=== PATIENT | male | born 1940 | race Two or more races ===

== ENCOUNTER 2024-07-07 09:45 | Emergency (ER) | payer OTHER ==
[~2024-07-07] VITALS: Ht 172.7 cm; Wt 81.6 kg
[2024-07-07] MEDS ORDERED: PROTONIX20 MG PO (09:56)
[2024-07-07] MEDS ORDERED: ZESTRIL5 MG (09:56)
[2024-07-07] MEDS ORDERED: 0.9 % SODIUM CHLORIDE 1,000 ML IV SCH (10:15)
[2024-07-07 11:49] LABS: BASO % 0.3 % (0.1-1.2); EOS # 0.03 (0.04-0.54); EOS % 0.2 % (0.7-7.0); HEMATOCRIT 52.8 % (40.1-51.0); HEMOGLOBIN 17.8 g/dL (13.7-17.5); LYMPH # 0.96 (1.18-3.74); LYMPH % 7.2 % (19.3-53.1); MEAN CORPUSCULAR HEMOGLOBIN 29.4 pg (25.6-32.2); MONO # 1.62 (0.24-0.82); NEUT # 10.66 (1.56-6.13); NEUT % 79.4 % (34.0-71.1); PLATELET COUNT 198 K/uL (163-369); RED BLOOD COUNT 6.05 M/uL (4.63-6.08); RED CELL DISTRIBUTION WIDTH 14.4 % (11.6-14.4)
[2024-07-07 11:51] LABS: MONO % 12.1 % (4.7-12.5)
[2024-07-07 13:31] LABS: ALBUMIN 3.8 gm/dL (3.4-5.0); BILIRUBIN TOTAL 1.24 mg/dL (0.3-1.2); CALCIUM 9.1 mg/dL (8.5-10.1); CREATININE SERUM 1.34 mg/dL (0.70-1.30); GFR 51.03; GLOBULINA 4.1 G/DL (2.4-3.5); POTASSIUM 3.78 mEq/L (3.5-5.1); TOTAL PROTEIN 7.9 gm/dL (6.4-8.2)
[2024-07-07 15:57] LABS: URINE APPEARANCE Cloudy; URINE BILIRRUBIN Negative (NEGATIVE); URINE BLOOD Negative; URINE COLOR Dark Yellow; URINE GLUCOSE Negative (NEGATIVE); URINE KETONE Negative (NEGATIVE); URINE LEUKOCYTE Negative; URINE NITRATE Negative; URINE PROTEIN Trace (NEGATIVE)
[2024-07-07 16:03] LABS: URINE EPITHELIAL CELLS 37.3 uL (0.0-38.8); URINE RBC 26.6 uL (0.0-20.8); URINE WBC 11.8 uL (0.0-23.2)
[2024-07-07] MEDS ORDERED: FAMOTIDINE/PF 20 MG in 0.9 % SODIUM CHLORIDE 8 ML IV PUSH STA (16:12)
[2024-07-07] MEDS ORDERED: DIPHENOXYLATE HCL/ATROPINE 1 UDTAB TABLET PO ONE (16:15)
[2024-07-07 16:44] LABS: URINE CAST > 21.83 uL (0.0-1.40)
[2024-07-07] MEDS ORDERED: FAMOTIDINE/PF 20 MG/2 ML VIAL ONE (16:48)
[2024-07-07] MEDS ORDERED: PIPERACILLIN/TAZOBACTAM SODIUM 3.375 GM VIAL IV ONE ×2 (17:37→17:45)
[2024-07-07] MEDS ORDERED: PEPCID AC20 MG PO (20:05)
[2024-07-07] MEDS ORDERED: INTESTINEX680 M1 PO (20:05)
[2024-07-07] MEDS ORDERED: METRONIDAZOLE500 MG PO (20:05)
== END 2024-07-07 21:40 | disposition left against medical advice (07) ==
LOC: ER 09:45
PROVIDERS: Emergency Medicine
DX: K52.9 Noninfective gastroenteritis and colitis, unspecified (principal); I10 Essential (primary) hypertension
CPT/HCPCS: 36415; 74176; 96365; 96366; 99284; J7030

== ENCOUNTER 2024-10-08 00:45 | Emergency (ER) | payer OTHER ==
[~2024-10-08] VITALS: Ht 175.3 cm; Wt 80.3 kg
[~2024-10-08 00:45] MED LIST: INTESTINEX680 M1 PO; METRONIDAZOLE500 MG PO; PEPCID AC20 MG PO; PROTONIX20 MG PO; ZESTRIL5 MG
[2024-10-08] MEDS ORDERED: METOPROLOL SUCC25 MG PO (00:52)
[2024-10-08] MEDS ORDERED: SIMVASTATIN5 MG PO (00:52)
[2024-10-08] MEDS ORDERED: PANTOPRAZOLE SO40 MG PO (00:52)
[2024-10-08] MEDS ORDERED: HYDROCHLOROTH12.5 M2 PO (00:52)
[2024-10-08] MEDS ORDERED: LISINOPRIL40 MG PO (00:52)
[2024-10-08] MEDS ORDERED: DILTIAZEM ER240 M2 PO (00:53)
[2024-10-08] MEDS ORDERED: ST. JOSEPH ASPI81 M2 PO (00:53)
[2024-10-08] MEDS ORDERED: 0.9 % SODIUM CHLORIDE 1,000 ML IV STA (02:08)
[2024-10-08] MEDS ORDERED: PROMETHAZINE HCL 50 MG/ML AMPUL IM STA (02:23)
[2024-10-08] MEDS ORDERED: FAMOtidine 10 MG/ML (4ML VIAL) IV PUSH STA (02:23)
[2024-10-08] MEDS ORDERED: HYOSCYAMINE SULFATE 0.125 MG TAB.SUBL SL ONE (02:30)
[2024-10-08 02:56] LABS: BASO % 0.2 % (0.1-1.2); EOS # 0.06 (0.04-0.54); EOS % 0.7 % (0.7-7.0); LYMPH # 1.16 (1.18-3.74); LYMPH % 13.5 % (19.3-53.1); MEAN PLATELET VOLUME 10.20 fl (9.4-12.4); MONO # 0.88 (0.24-0.82); MONO % 10.2 % (4.7-12.5); NEUT # 6.43 (1.56-6.13); NEUT % 74.9 % (34.0-71.1); RED CELL DISTRIBUTION WIDTH 13.6 % (11.6-14.4)
== END 2024-10-08 11:01 | disposition home or self-care (01) ==
LOC: ER 00:45
DX: K52.9 Noninfective gastroenteritis and colitis, unspecified (principal); R11.10 Vomiting, unspecified; I10 Essential (primary) hypertension
CPT/HCPCS: 36415; 96365; 96366; 96372; 99282; J2550; J3490; J7030